=== PATIENT | male | born 1955 | race Caucasian/White ===

== ENCOUNTER 2023-02-20 08:13 | Outpatient (AMB) | payer OTHER, SELFPAY ==
--- NOTE | 2023-02-20 08:15 | A.OFFVIS_ITS ---
Intake Vital Signs 02/20/23 08:21 Height 5 ft 7 in Weight 230 lb 5 oz BMI 36.1 BP 146/82 H Blood Pressure Location Rt brachial Position Sitting Respiration 16 Pulse 56 Pulse Source Pulse Oximeter Pulse Oximetry (%) 97 Oxygen Delivery Method Room Air Intake Visit Reasons: [employer]: Memory Decline episodes of desorientation Intake Note: Pt presents to the office for new pt evaluation for memory loss. He is here with his son Peterson who is his hobbies and crafts sales representative. Pt reports he's been having issues with forgetting for a couple months. He begins to do something then forgets what he is doing midway. Allergies No Known Allergies Allergy (Verified 02/20/23 08:15) Medication List - Last Reconciled 02/20/23 by Vivi Goins MD amlodipine 5 mg PO DAILY aspirin 81 mg PO DAILY atorvastatin 20 mg PO DAILY cholecalciferol (vitamin D3) 10 mcg PO DAILY diclofenac sodium 1% (Arthritis Pain (diclofenac)) 2 grams topical QID docusate sodium (Colace) 100 mg PO DAILY lisinopril 20 mg PO DAILY mecobalamin (vitamin B12) mcg PO metoprolol succinate ER 50 mg PO DAILY omeprazole 20 mg PO DAILY oxybutynin chloride ER 10 mg PO DAILY sennosides (senna) 8.6 mg PO DAILY tamsulosin (Flomax) 0.4 mg PO DAILY HPI HPI Comments History of Present Illness Details 67y/o male with h/o CAD , HTN, hyperlipi demia,sleep disorder comes for evaluation of memory loss and episodes of transient disorientation. He is accompanies by his son who helps with history. He started noticing difficulty with short term memory about 3 years ago and has worsened. He frequently misplaces and searches things around the house, repeats himself, forgets conversations, forgets appointments, forgets to take medications , has trouble with phone numbers etc.He has trouble with names , directions etc. He also describes episodes of disorientation to place lasting few minutes. He has loud snoring, wakes up gasping for air , frequent arousals, cannot sleep supine, feels he cannot breath. he has depression and is not well controlled. 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 Mother No problems noted. Social History Household Members: Children Housing: House Alcohol intake: never Patient Tobacco Use Status: Never used Tobacco Review of Systems Const Reports daytime sleepiness, Reports difficulty sleeping, Reports fatigue, Reports malaise, Reports snoring and Reports weight gain Resp Reports snoring Musc Reports back pain and Reports arthralgias Neuro Reports memory loss Psych Reports depression and Reports memory loss Endo Reports fatigue Physical Exam Vital Signs: Last Vital Signs Pulse 56 02/20/23 08:21 Resp 16 02/20/23 08:21 BP 146/82 H 02/20/23 08:21 Pulse Ox 97 02/20/23 08:21 Oxygen Delivery Method Room Air 02/20/23 08:21 BMI result Body Mass Index 36.1 Const General: cooperative and comfortable Nutritional Appearance: obese Orientation/consciousness: patient oriented x3 Neck Neck: Yes no meningeal signs Neuro Other: mallampatti grade 4 General: patient oriented x3, tone normal, moves all extremities, no meningeal signs and no focal motor deficits Cranial nerves: Yes Facial sensation intact/muscles of mastication intact, Yes Bilaterally intact EOM present, Yes Nystagmus not present, Yes Normal facial strength present and Yes Midline tongue present Cognition (Neuro): normal cognition Gait exam (Neuro): Normal gait present Motor exam (neuro): 5/5 motor strength present throughout and Normal motor muscle tone present throughout Deep tendon reflexes (DTR's): Right triceps reflex intensity grade: 1+, Left triceps reflex intensity grade: 1+, Rt Biceps (C5, C6): 1+, Left biceps reflex intensity grade: 1+, Right brachioradialis reflex intensity grade: 1+, Left brachioradialis reflex intensity grade: 1+, Right patellar reflex intensity grade: 1+ and Left patellar reflex intensity grade: 1+ Coordination: [id number] test normal Orientation What is the (year) (season) (date) (day) (month)?: year, season, day and month Where are we (state) (county) (town or city) (hospital) (floor)?: state, county, town or city, hospital/clinic and floor Registration Name of 3 unrelated objects clearly and slowly, then ask patient to repeat all 3 of them. (1st repeat determines score. Make sure they can repeat all three): object 1, object 2 and object 3 Attention & Calculation (CHOOSE ONE) Ask pt to begin with 100 & count backward by 7. Stop after 5 repeats. If pt cannot ask them to spell the word WORLD backward.: 93 Recall Ask patient to repeat the 3 items from question #3.: object 1 Language Show patient a wristwatch & ask what it is. Repeat for pencil.: watch and pencil Ask the patient to repeat the phrase 'No ifs, ands, or buts' after you.: correct Ask the patient to 'take a piece of paper with their right hand' 'fold paper in half' 'place paper on floor': take paper in right hand, fold paper in half and place paper on floor Print the sentence 'CLOSE YOUR EYES' on a piece. If patient actually closes eyes then score.: followed written direction Give patient a blank piece of paper & ask to write a sentence. Score if it contains a noun & verb.: sentence contains subject and verb Ask patient to copy figure of intersecting pentagons exactly. Score if all 10 angles & 2 intersects are included.: all 10 angles present & 2 are intersected Score Score: 23 Assessment & Plan Assessment & Plan (1) Cognitive disorder: Comment: likely related to untreated sleep apnea, and vascular risk factors. Code(s): F09 - Unspecified mental disorder due to known physiological condition (2) Snoring: Code(s): R06.83 - Snoring (3) Hypersomnia: Code(s): G47.10 - Hypersomnia, unspecified Plan CT brain and labs form PCP I will schedule him for a home sleep test. He declines in lab sleep study. Orders: Orders RT home sleep study Today F09 - Unspecified mental disorder due to known physiological condition, G47.10 - Hypersomnia, unspecified, R06.83 - Snoring Coding Level of Care Code New Pt Level 4 (91868) Diagnoses Cognitive disorder F09 Snoring R06.83 Hypersomnia G47.10
[2023-02-20 08:21] VITALS: BP 146/82; PULSE 56; RESP 16; O2SAT 97; BMI 36.1
== END 2023-02-20 08:56 | disposition home or self-care (01) ==
PROVIDERS: PCP Physician Assistant; Visit Provider Psychiatry & Neurology Neurology
DX: G31.84 Mild cognitive impairment of uncertain or unknown etiology (principal); R06.83 Snoring; G47.10 Hypersomnia, unspecified
CPT/HCPCS: 99204

== ENCOUNTER → 2023-02-20 08:13 | Outpatient (BNVA) | payer OTHER, SELFPAY | PROVIDERS: PCP Physician Assistant; Visit Provider Psychiatry & Neurology Neurology ==

== ENCOUNTER 2023-05-23 13:41 | Outpatient (AMB) | payer OTHER, SELFPAY ==
--- NOTE | 2023-05-23 13:52 | MHC.OFFVIS ---
Intake Vital Signs 05/23/23 14:00 Height 5 ft 7 in Weight 239 lb 8 oz BMI 37.5 BP 124/70 Blood Pressure Location Lt brachial Position Sitting Pulse 84 Pulse Source Pulse Oximeter Pulse Oximetry (%) 98 Oxygen Delivery Method Room Air Intake Visit Reasons: 3 mo f/u-Memory decline - CONF Intake Note: Patient presents for 3 months f/u. Allergies No Known Allergies Allergy (Verified 05/23/23 13:56) HPI HPI Comments History of Present Illness Details 67 y/o male with mhx of CAD, HTN, hyperlipidemia, sleep disorder comes for follow up. He is accompanies by his son who helps with history. Pt states that his memory is about the same with short term memory loss, worsened. He frequently misplaces and searches things around the house, repeats himself, forgets conversations, forgets appointments, forgets to take medications, has trouble with phone numbers etc. He also describes episodes of disorientation to place lasting few minutes. He has loud snoring, wakes up gasping for air, frequent arousals, cannot sleep supine, feels he cannot breath. Pt did not want to have in lab sleep study, and home sleep study ordered. The home sleep study order is pending for ALECIA. 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 Mother No problems noted. Social History Household Members: Children Housing: House Alcohol intake: never Patient Tobacco Use Status: Never used Tobacco Physical Exam Vital Signs: Last Vital Signs Pulse 84 05/23/23 14:00 BP 124/70 05/23/23 14:00 Pulse Ox 98 05/23/23 14:00 Oxygen Delivery Method Room Air 05/23/23 14:00 BMI result Body Mass Index 37.5 Const General: cooperative and comfortable Nutritional Appearance: obese Orientation/consciousness: patient oriented x3 Neck Neck: Yes no meningeal signs Neuro Other: mallampatti grade 4 General: patient oriented x3, tone normal, moves all extremities, no meningeal signs and no focal motor deficits Cranial nerves: Yes Facial sensation intact/muscles of mastication intact, Yes Bilaterally intact EOM present, Yes Nystagmus not present, Yes Normal facial strength present and Yes Midline tongue present Cognition (Neuro): normal cognition Gait exam (Neuro): Normal gait present Motor exam (neuro): 5/5 motor strength present throughout and Normal motor muscle tone present throughout Deep tendon reflexes (DTR's): Right triceps reflex intensity grade: 1+, Left triceps reflex intensity grade: 1+, Rt Biceps (C5, C6): 1+, Left biceps reflex intensity grade: 1+, Right brachioradialis reflex intensity grade: 1+, Left brachioradialis reflex intensity grade: 1+, Right patellar reflex intensity grade: 1+ and Left patellar reflex intensity grade: 1+ Coordination: [id number] test normal Assessment & Plan Assessment & Plan (1) Cognitive disorder: Comment: likely related to untreated sleep apnea, and vascular risk factors. Code(s): F09 - Unspecified mental disorder due to known physiological condition (2) Snoring: Code(s): R06.83 - Snoring (3) Hypersomnia: Code(s): G47.10 - Hypersomnia, unspecified Plan [facility]. Advised patient to undergo home sleep test to assess sleep apnea. Will f/u of sleep study result for appropriate treatment options. Wt reduction advised. Encouraged patient to increase physical, cognitive and social activities. Coding Level of Care Code Est Pt Level 3 (75431) Diagnoses Cognitive disorder F09 Snoring R06.83 Hypersomnia G47.10
[2023-05-23 14:00] VITALS: BP 124/70; PULSE 84; O2SAT 98; BMI 37.5
== END 2023-05-23 14:18 | disposition home or self-care (01) ==
PROVIDERS: PCP Internal Medicine; Visit Provider Nurse Practitioner Family
DX: R41.89 Other symptoms and signs involving cognitive functions and awareness (principal); R06.83 Snoring; G47.10 Hypersomnia, unspecified
CPT/HCPCS: 99213

== ENCOUNTER → 2023-05-23 13:41 | Outpatient (BNVA) | payer OTHER, SELFPAY | PROVIDERS: PCP Internal Medicine; Visit Provider Nurse Practitioner Family ==

== ENCOUNTER 2023-09-27 08:37 | Outpatient (AMB) | payer OTHER, SELFPAY ==
--- NOTE | 2023-09-27 08:51 | A.OFFVIS_ITS ---
Vital Signs 09/27/23 08:52 Height 5 ft 7 in Weight 229 lb BMI 35.9 BP 132/80 Blood Pressure Location Rt brachial Position Sitting Respiration 16 Pulse 62 Pulse Source Pulse Oximeter Pulse Oximetry (%) 98 Oxygen Delivery Method Room Air Intake Visit Reasons: 4m follow up Memory decline - Confirmed Intake Note: Pt presents for 4 month follow up for Cognitive disorder. [employer] Machine Tender Required: No Allergies No Known Allergies Allergy (Verified 09/27/23 08:51) HPI Comments Details: 68 y/o male with mhx of CAD, HTN, hyperlipidemia, sleep disorder comes for follow up. He is accompanies by his son who helps with history. I do not have his sleep study report done By [facility]. Pt states that his memory is about the same with short term memory loss, worsened. He frequently misplaces and searches things around the house, repeats himself, forgets conversations, forgets appointments, forgets to take medications, has trouble with phone numbers etc. He also describes episodes of disorientation to place lasting few minutes. He has loud snoring, wakes up gasping for air, frequent arousals, cannot sleep supine, feels he cannot breath. 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 Mother No problems noted. Social History Household Members: Children Housing: House Alcohol intake: never Patient Tobacco Use Status: Never used Tobacco Physical Exam Vital Signs: Last Vital Signs Pulse 62 09/27/23 08:52 Resp 16 09/27/23 08:52 BP 132/80 09/27/23 08:52 Pulse Ox 98 09/27/23 08:52 Oxygen Delivery Method Room Air 09/27/23 08:52 BMI result Body Mass Index 35.9 Const General: cooperative and comfortable Nutritional Appearance: obese Orientation/consciousness: patient oriented x3 Neck Neck: Yes no meningeal signs Neuro Other: mallampatti grade 4 General: patient oriented x3, tone normal, moves all extremities, no meningeal signs and no focal motor deficits Cranial nerves: Yes Facial sensation intact/muscles of mastication intact, Yes Bilaterally intact EOM present, Yes Nystagmus not present, Yes Normal facial strength present and Yes Midline tongue present Cognition (Neuro): normal cognition Gait exam (Neuro): Normal gait present Motor exam (neuro): 5/5 motor strength present throughout and Normal motor muscle tone present throughout Coordination: [id number] test normal Assessment & Plan Assessment & Plan (1) Cognitive disorder: Comment: likely related to untreated sleep apnea, and vascular risk factors. Code(s): F09 - Unspecified mental disorder due to known physiological condition Category: Medical (2) Snoring: Code(s): R06.83 - Snoring Category: Medical (3) Hypersomnia: Code(s): G47.10 - Hypersomnia, unspecified Category: Medical Plan Will contact [facility] for sleep study results Wt reduction advised. Encouraged patient to increase physical, cognitive and social activities. Coding Level of Care Code Est Pt Level 4 (72508) Diagnoses Cognitive disorder F09 Snoring R06.83 Hypersomnia G47.10
[2023-09-27 08:52] VITALS: BP 132/80; PULSE 62; RESP 16; O2SAT 98; BMI 35.9
== END 2023-09-27 09:16 | disposition home or self-care (01) ==
PROVIDERS: PCP Internal Medicine; Visit Provider Psychiatry & Neurology Neurology
DX: R41.89 Other symptoms and signs involving cognitive functions and awareness (principal); R06.83 Snoring; G47.10 Hypersomnia, unspecified
CPT/HCPCS: 99214

== ENCOUNTER → 2023-09-27 08:37 | Outpatient (BNVA) | payer OTHER, SELFPAY | PROVIDERS: PCP Internal Medicine; Visit Provider Psychiatry & Neurology Neurology ==

== ENCOUNTER 2024-04-28 09:04 | Outpatient (AMB) | payer OTHER, SELFPAY ==
--- NOTE | 2024-04-28 09:11 | MHC.OFFVIS ---
Vital Signs 04/28/24 09:12 Height 5 ft 7 in Weight 234 lb BMI 36.6 BP 142/88 H Blood Pressure Location Rt brachial Position Sitting Pulse 66 Pulse Source Pulse Oximeter Pulse Oximetry (%) 96 Oxygen Delivery Method Room Air Intake Visit Reasons: 6 month f/u Intake Note: Patient presents for 6 month follow up Allergies No Known Allergies Allergy (Verified 04/28/24 09:20) Medication List - Last Reconciled 04/28/24 by Kim Claros PA-C amlodipine 5 mg PO DAILY aspirin 81 mg PO DAILY atorvastatin 20 mg PO DAILY cholecalciferol (vitamin D3) 10 mcg PO DAILY diclofenac sodium 1% (Arthritis Pain (diclofenac)) 2 grams topical QID docusate sodium (Colace) 100 mg PO DAILY lisinopril 20 mg PO DAILY mecobalamin (vitamin B12) mcg PO metoprolol succinate ER 50 mg PO DAILY omeprazole 20 mg PO DAILY oxybutynin chloride ER 10 mg PO DAILY sennosides (senna) 8.6 mg PO DAILY tamsulosin (Flomax) 0.4 mg PO DAILY HPI Comments Details: 68 y/o male with mhx of CAD, HTN, hyperlipidemia, sleep disorder comes for follow up. He is accompanies by his son who helps with history. I do not have his sleep study report done By [facility]. Pt states that his memory is about the same with short term memory loss, worsened. He frequently misplaces and searches things around the house, repeats himself, forgets conversations, forgets appointments, forgets to take medications, has trouble with phone numbers etc. He also describes episodes of disorientation to place lasting few minutes. He has loud snoring, wakes up gasping for air, frequent arousals, cannot sleep supine, feels he cannot breath. He has b/l Knee pain and R. hip pain. He lives at home and is independent in all ADLs. He doesn't drive anymore. RLS: He says L>R has numbness, tingling, spasms, and massages them and they feel better. He is always moving his legs at night. MMSE 22 Mood and Diet are okay. 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 Mother No problems noted. Social History Household Members: Children Housing: House Alcohol intake: never Patient Tobacco Use Status: Never used Tobacco Review of Systems Const All systems reviewed & are unremarkable except as noted in HPI and below Physical Exam Vital Signs: Last Vital Signs Pulse 66 04/28/24 09:12 BP 142/88 H 04/28/24 09:12 Pulse Ox 96 04/28/24 09:12 Oxygen Delivery Method Room Air 04/28/24 09:12 BMI result Body Mass Index 36.6 Const General: cooperative and comfortable Nutritional Appearance: obese Orientation/consciousness: patient oriented x3 Neck Neck: Yes no meningeal signs Neuro Other: mallampatti grade 4 General: patient oriented x3, tone normal, moves all extremities, no meningeal signs and no focal motor deficits Cranial nerves: Yes Facial sensation intact/muscles of mastication intact, Yes Bilaterally intact EOM present, Yes Nystagmus not present, Yes Normal facial strength present and Yes Midline tongue present Cognition (Neuro): normal cognition Gait exam (Neuro): Normal gait present Motor exam (neuro): 5/5 motor strength present throughout and Normal motor muscle tone present throughout Coordination: [id number] test normal Orientation What is the (year) (season) (date) (day) (month)?: year, season, day and month Where are we (state) (county) (town or city) (hospital) (floor)?: state, town or city, hospital/clinic and floor Registration Name of 3 unrelated objects clearly and slowly, then ask patient to repeat all 3 of them. (1st repeat determines score. Make sure they can repeat all three): object 1, object 2 and object 3 Attention & Calculation (CHOOSE ONE) Ask pt to begin with 100 & count backward by 7. Stop after 5 repeats. If pt cannot ask them to spell the word WORLD backward.: 93 and 86 Recall Ask patient to repeat the 3 items from question #3.: object 1, object 2 and object 3 Language Show patient a wristwatch & ask what it is. Repeat for pencil.: watch and pencil Ask the patient to repeat the phrase 'No ifs, ands, or buts' after you.: incorrect Ask the patient to 'take a piece of paper with their right hand' 'fold paper in half' 'place paper on floor': fold paper in half and place paper on floor Print the sentence 'CLOSE YOUR EYES' on a piece. If patient actually closes eyes then score.: followed written direction Give patient a blank piece of paper & ask to write a sentence. Score if it contains a noun & verb.: sentence contains subject and verb Score Score: 22 Results Reviewed Results Reviewed: Needs [employer] - to send us the Sleep Study [facility] - Records and Labs Assessment & Plan Assessment & Plan (1) Cognitive disorder: Comment: likely related to untreated sleep apnea, and vascular risk factors. Code(s): F09 - Unspecified mental disorder due to known physiological condition Category: Medical (2) Snoring: Code(s): R06.83 - Snoring Category: Medical (3) Hypersomnia: Code(s): G47.10 - Hypersomnia, unspecified Category: Medical (4) Neuropathy: Code(s): G62.9 - Polyneuropathy, unspecified Category: Medical (5) Pain in left lower leg: Code(s): M79.662 - Pain in left lower leg Category: Medical (6) RLS (restless legs syndrome): Code(s): G25.81 - Restless legs syndrome Category: Medical Plan Will contact [facility] for sleep study results. BMI is elevated : Wt reduction advised. RLS: Lidocaine, Meloxicam for Cramps, he has Voltran. Cognitive Decline: will f/u after sleep study, MMSE 22 today. Patient Education: Encouraged patient to increase physical, cognitive and social activities. Labs CBC/ CMP/ B12. Vit D / MMA / Homocysteine TSH Will f/u in 3 months Orders: Orders Vitamin B12 and Folate 04/28/24 G62.9 - Polyneuropathy, unspecified, F09 - Unspecified mental disorder due to known physiological condition Vitamin D 25-OH Total 04/28/24 F09 - Unspecified mental disorder due to known physiological condition, G62.9 - Polyneuropathy, unspecified TSH reflex Free T4 04/28/24 F09 - Unspecified mental disorder due to known physiological condition Methylmalonic Acid 04/28/24 G62.9 - Polyneuropathy, unspecified, F09 - Unspecified mental disorder due to known physiological condition Homocysteine 04/28/24 G62.9 - Polyneuropathy, unspecified, F09 - Unspecified mental disorder due to known physiological condition Complete Blood Count no Diff 04/28/24 G62.9 - Polyneuropathy, unspecified, F09 - Unspecified mental disorder due to known physiological condition Comprehensive Met. Panel 04/28/24 G62.9 - Polyneuropathy, unspecified, F09 - Unspecified mental disorder due to known physiological condition Medications: New cholecalciferol (vitamin D3) 1,250 mcg PO QWEEK 30 caps 0RF lidocaine 5% leave on most painful area for up to 12 hrs 3 patches topical DAILY 30 ea 0RF magnesium oxide 400 mg PO DAILY 30 tabs 1RF restless legs MDD 400mg G62.9 - Polyneuropathy, unspecified, F09 - Unspecified mental disorder due to known physiological condition riboflavin (vitamin B2) 400 mg PO DAILY 30 tabs 3RF insomnia MDD 400mg G47.9 - Sleep disorder, unspecified, F03.90 - Unspecified dementia, unspecified severity, without behavioral disturbance, psychotic disturbance, mood disturbance, and anxiety meloxicam 15 mg PO DAILY 30 tabs 0RF 30 days M79.662 - Pain in left lower leg Coding Level of Care Code Est Pt Level 4 (34584) Diagnoses Cognitive disorder F09 Snoring R06.83 Hypersomnia G47.10 Neuropathy G62.9 Pain in left lower leg M79.662 RLS (restless legs syndrome) G25.81
[2024-04-28 09:12] VITALS: BP 142/88; PULSE 66; O2SAT 96; BMI 36.6
== END 2024-04-28 10:19 | disposition home or self-care (01) ==
PROVIDERS: PCP Internal Medicine; Visit Provider Physician Assistant Medical
DX: R41.89 Other symptoms and signs involving cognitive functions and awareness (principal); R06.83 Snoring; G47.10 Hypersomnia, unspecified; G62.9 Polyneuropathy, unspecified; M79.662 Pain in left lower leg; G25.81 Restless legs syndrome
CPT/HCPCS: 99214

== ENCOUNTER 2024-07-31 08:55 | Outpatient (AMB) | payer OTHER, SELFPAY ==
[2024-07-31 09:10] VITALS: BP 124/70; PULSE 67; O2SAT 97; BMI 35.2
--- NOTE | 2024-07-31 09:10 | A.OFFVIS_ITS ---
Vital Signs 07/31/24 09:10 Height 5 ft 7 in Weight 225 lb BMI 35.2 BP 124/70 Blood Pressure Location Lt brachial Position Sitting Pulse 67 Pulse Source Pulse Oximeter Pulse Oximetry (%) 97 Oxygen Delivery Method Room Air Intake Visit Reasons: 3m follow up Intake Note: Patient presents follow up Cognitive/Sleep medication. Accompanied by: Son Allergies No Known Allergies Allergy (Verified 07/31/24 09:15) HPI Comments Details: 69 y/o male with hx of CAD, HTN, hyperlipidemia, sleep disorder comes for follow up for sleep and cognitive difficulties. He speaks Maori and understands some Thai, he is accompanied by his son who helps with history. He did not have his sleep study conducted as he was confused by jackie LLOYD. Pt states that his memory is about the same with short term memory loss, he needs multiple reminders and cuing. His manages his medication now, as he forgets to take his blood pressure medication.He frequently misplaces articles and searches around the house. He repeats himself, forgets conversations, forgets appointments, has trouble with phone numbers etc. He also describes episodes of disorientation to places lasting few minutes. He snores loudly, wakes up gasping for air, frequent arousals, doesn't sleep through the night and cannot sleep supine, feels he cannot breath, will sleep on his left side vs. right due to pain and a creaky noise in his r. shoulder when he reaches for anything in the cupboard. He has osteoarthritis bilaterally in knees and r. hip pain he has been seen by [facility] in the past and asks today for some gel like substance injections. He lives at home and is independent in all ADLs, he cooks delicous meals per his son, and does not drive anymore. He walks for about 30 min 3 x a week, is motivated to lose weight, does not drink alcohol, prefers juice and water. MMSE at last visit was 22, will evaluate with MRI in next appt if not improved with CPAP use. RLS: He denies RLS symptoms. Denies numbness, tingling, spasms, cramps. Headaches: He denies morning headaches and does not grind his teeth, he needs dentures and has not been to the dentist. His mood is okay, he feels better in the summer months, less depressed and goes out more. 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 Mother No problems noted. Social History Household Members: Children Housing: House Alcohol intake: never Patient Tobacco Use Status: Never used Tobacco Physical Exam Vital Signs: Last Vital Signs Pulse 67 07/31/24 09:10 BP 124/70 07/31/24 09:10 Pulse Ox 97 07/31/24 09:10 Oxygen Delivery Method Room Air 07/31/24 09:10 BMI result Body Mass Index 35.2 Const General: cooperative and comfortable Nutritional Appearance: obese Orientation/consciousness: patient oriented x3 Neck Neck: Yes no meningeal signs Neuro Other: mallampatti grade 4 General: patient oriented x3, tone normal, moves all extremities, no meningeal signs and no focal motor deficits Cranial nerves: Yes Facial sensation intact/muscles of mastication intact, Yes Bilaterally intact EOM present, Yes Nystagmus not present, Yes Normal facial strength present and Yes Midline tongue present Cognition (Neuro): normal cognition Gait exam (Neuro): Normal gait present Motor exam (neuro): 5/5 motor strength present throughout and Normal motor muscle tone present throughout Coordination: xclobr-mx-gygh test normal Results Reviewed Results Reviewed: MRI 05/16/2023 abdomen [facility] Normal Study CT scan Apr 2017, normal study Assessment & Plan Assessment & Plan (1) Shoulder pain, right: Code(s): M25.511 - Pain in right shoulder Category: Medical Qualifiers: Chronicity: chronic Qualified Code(s): M25.511 - Pain in right shoulder; G89.29 - Other chronic pain (2) Cognitive disorder: Comment: likely related to untreated sleep apnea, and vascular risk factors. Code(s): F09 - Unspecified mental disorder due to known physiological condition Category: Medical (3) Snoring: Code(s): R06.83 - Snoring Category: Medical (4) Hypersomnia: Code(s): G47.10 - Hypersomnia, unspecified Category: Medical (5) Neuropathy: Code(s): G62.9 - Polyneuropathy, unspecified Category: Medical (6) Pain in left lower leg: Code(s): M79.662 - Pain in left lower leg Category: Medical (7) RLS (restless legs syndrome): Code(s): G25.81 - Restless legs syndrome Category: Medical (8) Fatigue due to sleep pattern disturbance: Code(s): R53.83 - Other fatigue; G47.9 - Sleep disorder, unspecified Category: Medical Plan HST to evalutate for Sleep difficulties. BMI is elevated discussed heart healthy diet today. R. Shoulder pain discussed [facility] for PT and Cortisone injections. Bilateral Knee pain osteoarthritis, may use Meloxicam, turmeric 500mg with black pepper for absorption daily to decrease inflammation. Cognitive Decline will send him for MRI at next visit if not improved. Patient Education provided re: sleep hygiene and the correlation of comorbi dities on heart health and brain health. Labs CBC/ CMP/ B12. Vit D / MMA / Homocysteine TSH f/u in 3 months Orders: Orders PT Evaluation and Treatment Today M25.511 - Pain in right shoulder RT home sleep study Today G47.19 - Other hypersomnia Patient Instructions: Sleep Hygiene provided: set a scheduled bedtime and wake time to help regulate the circadian rhythm and balance the release of pituitary hormones. Sleep in a dark room, temperatures below 68 degrees, and no devices n bed. Limit caffeinated products 6 hours prior to bed, and limit fluids 2-4 hours prior to bed. Gentle night yoga, diffusing essential oils, and playing soft music can be relaxing. The number one modifiable risk factor of CV risk is good blood pressure management, patient has a history of pulmonary aneurysm and cognitive decline, patient education provided today, re: reducing weight, walking, joining the [employer] and taking all medications on time, also having his manage medications if he is confused or forgets. Alleviating stressors, gettting a good nights sleep and exercise. Coding Level of Care Code Est Pt Level 4 (27147) Diagnoses Chronic right shoulder pain M25.511; G89.29 Chronicity: chronic Cognitive disorder F09 Snoring R06.83 Hypersomnia G47.10 Neuropathy G62.9 Pain in left lower leg M79.662 RLS (restless legs syndrome) G25.81 Fatigue due to sleep pattern disturbance R53.83; G47.9 Time Spent (min) 30
--- OUTSIDE RECORDS SUMMARY | 2024-07-31 09:31 | XMS_ITS | Clinical Summary ---
Author Organization [facility] Address [address] [place] [address] Care Team Providers Care Baby Registry Sales Consultant Name Role Phone Destinee Branham PA-C Primary Care Provider [phone] Source Comments PLEASE NOTE, if this patient is a minor, it may be UNLAWFUL to discuss sensitive information that is contained in these records (such as FAMILY PLANNING, MENTAL HEALTH or SUBSTANCE ABUSE) with the minor patient's parent or other person without the patient's specific authorization.[facility] Allergies No known active allergies Medications omeprazole (PRILOSEC) [address] capsuleIndications :Gastroesophageal reflux disease, esophagitis presence not specified Take 1 Cap by mouth every morning before breakfast Do not crush or chew. 06/02/19 17 Active tamsulosin (FLOMAX) 0.4 mg 24 hr capsule TAKE ONE CAPSULE BY MOUTH ONCE DAILY 30 MIN FOLLOWING SAME MEAL,SWALLOW WHOLE,DON'T CRUSH/CHEW 30 Cap 5 07/21/19 17 Active calamine lotionIndications: Poison sally dermatitis Apply topically 2 (two) times daily 120 mL 10/13/19 18 Active blood pressure monitorIndications :Essential hypertension Check BP at least daily. I10 Essential hypertension (primary encounter diagnosis) 1 Kit 10/30/19 19 Active camphor-menthol (SARNA ANTI-ITCH) 0.5-0.5 % lotnIndications:It myles Apply 5 mL topically 1 to 2 (one to two) times daily 222 mL 10/30/19 19 Active diclofenac sodium (VOLTAREN) 1 % gelIndications:Chr onic pain of both knees,Acute right-sided thoracic back pain APPLY 4 GRAMS TO left knee 3 TIMES PER DAY 100 g 1 10/30/19 19 Active cetirizine (ZYRTEC) 10 mg tabletIndications: Seasonal allergies Take 1 Tab by mouth once daily 30 Tab 2 04/01/20 19 Active lisinopriL 40 mg tablet Take 1 Tablet by mouth once daily 90 Tablet 3 03/09/20 [address] tabletIndications: Hyperlipidemia, unspecified hyperlipidemia type,Essential hypertension Take 1 Tablet by mouth once daily 90 Tablet 3 03/09/20 21 Active atorvastatin (LIPITOR) 80 mg tabletIndications: Essential hypertension Take 1 Tablet by mouth once daily 90 Tablet 3 03/09/20 21 Active VITAMIN D3 25 mcg (1,000 unit) tabletIndications: Vitamin D insufficiency TAKE 1 TABLET BY MOUTH EVERY DAY 90 Tablet 06/14/19 22 Active Active Problems Problem Noted Date Diagnosed Date Right knee pain 04/26/2018 Overview (04/26/2018): Sees [facility] - 03-21-18 - moderate medial femorotibial compartment joint space narrowing. Trial tylenol. Injection done. Cerebrovascular accident (CVA) ([facility]) 018 Overview (09/18/2017): Saw [facility] on 09-11-17. CT of head ordered and CTA head and neck. Will f/u after imaging. Rotator cuff tear of right shoulder 07/28/2016 GERD (gastroesophageal reflux disease) 7 Adenoma of left adrenal gland 12/22/2015 Overview (12/22/2015): Via CT 12/09/15 at [facility], repeat 1 year BPH (benign prostatic hypertrophy) 12/22/2015 Overview (12/22/2015): CT abd/pelvis 12/09/15 [facility] Vitamin D insufficiency 2015 Chronic pain of left knee 07/30/2014 Overview (07/30/2014): S/p left knee arthroscopy 11/28/[address] Alcocer. HTN (hypertension) 09/06/2012 IFG/Pre-DM 12/15/2011 Hyperlipidemia LDL goal <100 07/26/2010 Bilateral shoulder pain 07/25/2010 Overview (12/13/2012): Rotator cuff tear Right shoulder per [facility]. Obesity Encounters Date Type Department Care Team Description 07/01/2024 3:00 PM EDT Office Visit [address] [phone] Guanaco Diaz DDS Fracture of removable partial denture (Primary Dx) 06/30/2024 9:40 AM EDT Office Visit [address] [phone] Guanaco Diaz DDS Fracture of removable partial denture (Primary Dx) 05/30/2024 2:20 PM EST Office Visit [address] [phone] Guanaco Diaz DDS Partial edentulism, unspecified edentulism class (Primary Dx) 05/21/2024 10:00 AM EST Office Visit [address] [phone] Guanaco Diaz DDS Partial edentulism, unspecified edentulism class (Primary Dx) 05/15/2024 2:20 PM EST Office Visit [address] [phone] Guanaco Diaz DDS Partial edentulism, unspecified edentulism class (Primary Dx) from Last 3 Months Immunizations Immunization Administration Dates Next Due Flu, Preservative Free 02/07/2018,01/09/2017, Hep A, adult 12/15/2011 Hep B, Adult/Adol (ENERGIX/RECOMBIVAX) 12/15/2011,03/27/2000,01/27/2000 INFLUENZA, SEASONAL, INJECTABLE 03/18/2014,12/13 MMR (MMR II/Priorix) 03/27/2000,12/23/1999 PPD 02/26/2016, 6,06/08/2015,2013,01/17/2007 TDAP 07/01/2018 Td(adult),2 Lf tetanus toxoid,preservative free 12/23/1999 Family History Medical History Relation Name Comments Cancer Father liver Diabetes Mother High Cholesterol Mother Relation Name Status Comments Father (Age 70) liver canc er Mother Alive Social History Tobacco Use Types Packs/Day Years Used Date Smoking Tobacco: Never Smokeless Tobacco: Never Tobacco Cessation:Counseling Given: Yes Alcohol Use Standard Drinks/Week Comments Yes 0 (1 standard drink = 0.6 oz pur e alcohol) rare Social Connections Answer Date Recorded Connectedness 0 12/26/2023 Financial Resource Strain Answer Date R ecorded Financial Resource Strain 0 2018 Stress Answer Date Recorded Stress 0 11/25/2018 Physical Activity Answer Date Recorded Physical Activity 0 11/25/2018 Food Insecurity Answer Date Recorded Food 0 01/03/2024 Transportation Needs Answer Date Record ed Transportation 0 11/25/2018 Housing Stability Answer Date Recorded Housing 0 11/25/2018 Safety and Environment Answer Date Gopi rded Safety 0 11/25/2018 Utilities Answer Date Recorded Utilities 0 11/25/2018 Employment Answer Date Recorded Stress 0 12/26/2023 Sex and Gender Information Value Date Recorded Sex Assigned at Male 07/26/2017 8:02 AM PDT Legal Sex Male 11:36 AM PDT Gender Identity Male 07/26/2017 8:02 AM PDT Sexual Orientation Straight 07/26/2017 8: 02 AM PDT Occupation Industry 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 [employer] Not on file Not on file Not on file Last Filed Vital Signs Vital Sign Reading Time Taken Comments Blood Pressure 168/89 04/14/2024 1:34 PM EST Pulse 71 04/14/2024 1:34 PM EST Temperature 36.6 ??C (97.8 ??F) 03/09/2021 10:[address] Respiratory Rate 16 03/09/2021 10:46 AM EST Oxygen Saturation 97% 03/09/2021 10:46 AM EST Inhaled Oxygen Concentration - - Weight 106 kg (233 lb 9.6 oz) 03/09/2021 10:46 A M EST Height 170.2 cm (5' 7 ) 03/09/2021 10:46 AM EST Body Mass Index 36.59 03/09/2021 10:46 AM EST Plan of Treatment Health Maintenance Due Date Last Done Comments Dental FMX/Pano 1956 Dental Perio Charting [address] Colonography 2001 FIT/gFOBT 2001 Fecal DNA 2001 Flexible Sigmoidoscopy 2001 Imm-Pneumococcal 65+ (1 of 1 - PCV) 2006 Imm-Zoster, Recombinant (1 of 2) 2006 Falls Prevention 2021 Lipid Screening 03/09/2022 03/09/2021, 06/08, 07/26/2017, Additional history exists Medicare Annual Wellness Visit 03/09/2022 1 05/10/2020, 07/01/2018, 07/28/2016, Additional history exists [id number] ( season) 2023 Imm-Influenza (#1) 2023 01/25/2019, 1 04/09/2017, 01/09/2017, Additional history exists Diabetes Screening 03/09/2024 03/09/2021, 1 05/10/2020, 07/01/2018, Additional history exists Alcohol and Drug Screen 04/09/2024 03/09/20, 07/01/2018, 05/02/2018, Additional history exists Depression Annual Screen 04/09/2024 03/09/2021 Dental Examination 04/16/2025 04/14/2024 Tobacco Screening 07/01/2025 07/01/2024, 07/01/2018 Colonoscopy 07/27/2026 07/27/2016 Colorectal Cancer Screening 07/27/2026 Imm-DTaP/Tdap/Td (3 - Td or Tdap) 08/01/2031 07/31/2021, 07/01/2018, 12/23/1999 Imm-Hepatitis B Completed 12/15/2011, 03/09, 01/27/2000 Hepatitis C Screening Completed 07/01/2018 Goals Goal Patient Goal Type Associated Problems Recent Progress Patient-Stated? Author Blood Pressure < 130/80 Blood Pressure HTN (hypertension) 168/89( 025 1:34 PM EST) Trav Chavez, PharmD Procedures Procedure Name Priority Date/Time Associated Diagnosis Comments NO CHARGE DENTAL VISIT Routine 3:00 PM EDT Fracture of removable partial denture REMOVABLE PARTIAL DENTURE - IN PROCESS Routine 06/30/2024 9:40 AM EDT Fracture of removable partial denture 30,31,17 MANDIBULAR PARTIAL DENTURE - RESIN BASE Routine 05/30/2024 2:20 PM EST Partial edentulism, unspecified edentulism class 2,3,4,5,6,7,12,13,14,1 5,8,9,10 MAXILLARY PARTIAL DENTURE - RESIN BASE Routine 05/30/2024 2:20 PM EST Partial edentulism, unspecified edentulism class REMOVABLE PARTIAL DENTURE - IN PROCESS Routine 05/21/2024 10:00 AM EST Partial edentulism, unspecified edentulism class UPPER PARTIAL DENTURE WAX RIM IN PROGRESS Routine 05/15/2024 2:20 PM EST Partial edentulism, unspecified edentulism class COMP ORAL EVALUATION - NEW/ESTABLISHED PATIENT Routine 04/14/2024 1:00 PM EST Encounter for dental examination COMPREHENSIVE METABOLIC PANEL Routine 03/09/2021 11:47 AM EST Annual physical exam LIPIDS W RFLX TO DIRECT LDL Routine 03/09/2021 11:47 AM EST Annual physical exam HEPATITIS A,B,C PANEL Routine 07/01/2018 9:40 AM EDT Encounter for hepatitis C screening test for low risk patient COLONOSCOPY Routine 07/27/2016 9:48 AM EDT from Last 3 Months or Most Recently Relevant to Health Maintenance Results * (ABNORMAL) LIPIDS W RFLX TO DIRECT LDL (03/09/2021 11:47 AM EST) [facility] Signature CHOLESTEROL, TOTAL 199 <200 mg/dL [facility] HDL CHOLESTEROL 50 > OR = 40 mg/dL [facility] TRIGLYCERIDES 97 <150 mg/dL [facility] LDL-CHOLESTEROL 129(H) 99 mg/dL (calc) [facility] Comment: Reference range: <100 Desirable range <100 mg/dL for primary prevention; ?? <70 mg/dL for patients with CHD or diabetic patients with > or = 2 CHD risk factors. LDL-C is now calculated using the Jeremy calculation, which is a validated novel method providing better accuracy than the Friedewald equation in the estimation of LDL-C. Kaleb PRICE et al. ALEJANDRO. 2013;310(19): 2600-6420 (http://education.[employer].Yarraa/faq/QLN146) CHOL/HDLC RATIO 4.0 <5.0 (calc) [facility] NON-HDL CHOLESTEROL 149(H) <130 mg/dL (calc) [facility] Comment: For patients with diabetes plus 1 major ASCVD risk factor, treating to a non-HDL-C goal of <100 mg/dL (LDL-C of <70 mg/dL) is considered a therapeutic option. Blood Blood / Unknown 03/09/2021 1 1:47 AM EST 03/09/2021 11:48 AM EST Destinee Branham PA-C LAB - BLOOD DRAW Final Resul t [facility] [address] [address], [facility] [address] [address] * COMPREHENSIVE METABOLIC PANEL (03/09/2021 11:47 AM EST) GLUCOSE 98 65 - 99 mg/dL [facility] Comment: ?Fasting reference interval UREA NITROGEN (BUN) 16 7 - 25 mg/dL [facility] CREATININE (blood) 0.83 0.70 - 1.25 mg/dL [facility] Comment: For patients >49 years of age, the reference limit for Creatinine is approximately 13% higher for people identified as -Lebanese. GFR ESTIMATED 93 > OR = 60 mL/min/1 .73m2 [facility] EGFR 108 > OR = 60 mL/min/1 .73m2 [facility] BUN/CREATININE RATIO NOT APPLICABLE 6 - 22 [facility] SODIUM 138 135 - 146 mmol/L [facility] POTASSIUM 4.2 3.5 - 5.3 mmol/L [facility] CHLORIDE 102 98 - 110 mmol/L [facility] CARBON DIOXIDE 27 20 - 32 mmol/L [facility] CALCIUM 9.3 8.6 - 10.3 mg/dL [facility] PROTEIN, TOTAL 7.0 6.1 - 8.1 g/dL [facility] ALBUMIN 4.4 3.6 - 5.1 g/dL [facility] GLOBULIN 2.6 1.9 - 3.7 g/dL (calc) [facility] ALBUMIN/GLOBULIN RATIO 1.7 1.0 - 2.5 (calc) [facility] BILIRUBIN, TOTAL 0.8 0.2 - 1.2 mg/dL [facility] ALKALINE PHOSPHATASE 58 35 - 144 U/L [facility] AST 17 10 - 35 U/L [facility] ALT 22 9 - 46 U/L [facility] Blood Blood / Unknown 03/09/2021 1 1:47 AM EST 03/09/2021 11:48 AM EST Destinee Branham PA-C LAB - BLOOD DRAW Final Resul t [facility] [address] [address], [facility] [address] [address] * (ABNORMAL) HEPATITIS A,B,C PANEL (07/01/2018 9:40 AM EDT) HEPATITIS B SURFACE ANTIBODY NEGATIVE NEGATIVE [facility] HEPATITIS B SURFACE ANTIGEN NEGATIVE NEGATIVE [facility] Comment: Over the counter supplements containing high doses of biotin may interfere with this assay. ??If interference is suspected, patients shoud be retested after refraining from biotin supplements for 72 hours. HEPATITIS C VIRUS DIAGNOSTIC NEGATIVE NEGATIVE [facility] HEPATITIS A ANTIBODY TOTAL POSITIVE(A) NEGATIVE [facility] Comment: Over the counter supplements containing high doses of biotin may interfere with this assay. ??If interference is suspected, patients shoud be retested after refraining from biotin supplements for 72 hours. HEPATITIS B CORE ANTIBODY NEGATIVE NEGATIVE [facility] Blood specimen (specimen) Blood / Unknown 07/01/2018 9:40 AM EDT 07/01/2018 10:45 AM EDT Narrative [facility] - 07/01/2018 12:54 PM EDT [employer], a member of [address] [address] [employer] Equipment [place] [id number] ORD# [id number] us [facility] - BLOOD DRAW Edited Result - Final [facility] [address] [place] [address], * COLONOSCOPY (07/27/2016 9:48 AM EDT) Ward Crook PA - 07/27/2016 9:48 AM EDT Done at [facility] per EMR us Provider [facility] PROCEDURES Edited Result - Final from Last 3 Months or Most Recently Relevant to Health Maintenance [place] [id number] Care Teams Baby Registry Sales Consultant Relationship Specialty Start Date End Date Destinee Branham PA-C [address] [place] [address] PCP - General Internal Medicine 12/31/20
--- OUTSIDE RECORDS SUMMARY | 2024-07-31 09:31 | XMS_ITS | Clinical Summary ---
Author Organization [facility] Address [address] [place] [address] Phone Care Team Providers Care Occupational Rehabilitation Aide Name Role Phone Mayra Sauer Lottie SCRAP SAWYER Primary Care Provider [phone] Allergies No known active allergies Medications polyethylene glycol (Golytely) 236-22.74-6.74 -5.86 gram solution Take 4L by mouth once for one dose. May substitue any PEG. Starting at 6PM the night before your procedure drink 1 8oz glasses at your own pace until you complete half of the gallon. Finish 2nd half of the gallon 5 hours before your procedure. 4000 mL 5 Active bisacodyL (DULCOLAX) 5 mg EC tablet Take 2 tablets by mouth right before beginning bowel prep. See instructions provided by the office 2 tablet 5 Active atorvastatin (LIPITOR) 20 mg tablet Take 1 tablet (20 mg total) by mouth 1 (one) time each day. Active lisinopriL (PRINIVIL,ZESTR IL) 20 mg tablet Take 1 tablet (20 mg total) by mouth 1 (one) time each day. Active Encounters Date Type Department Care Team Description 06/18/2024 1:40 PM EDT Anesthesia Event [facility] Endoscopy [address] [place] [address] Jim Erickson MD Chang, Daniel J, MD 06/18/2024 11:41 AM EDT - 06/18/2024 11:59 PM EDT Hospital Encounter [facility] Endoscopy [address] [place] [address] Vaishnavi Matthews MD Colon cancer screening Discharge Disposition: Home or Self Care from Last 3 Months Surgical History Surgery Date Site/Laterality Comments HERNIA REPAIR PROCEDURE: HISTORICAL HERNIA REPAIR/ING APPENDECTOMY PROCEDURE: [place] APPENDECTOMY COLONOSCOPY 07/27/2016 PROCEDURE: HISTORICAL COLONOSCOPY; COMMENT: [email or web address]; normal. UPPER GASTROINTESTINAL ENDOSCOPY 06/09/2019 PROCEDURE: [place] UPPER GI ENDOSCOPY PERFORMED; COMMENT: Normal KNEE ARTHROSCOPY Medical History Medical History Date Comments H/O small bowel obstruction DX:H /O small bowel obstruction Abdominal pain DX:Abdominal elvis n Esophageal reflux DX:Esophageal reflux Throat pain in adult DX:Throat p ain in adult Hyperlipidemia Hypertension Social History Tobacco Use Types Packs/Day Years Used Date Smoking Tobacco: Never Smokeless Tobacco: Never Alcohol Use Standard Drinks/Week Comments Yes 0 (1 standard drink = 0.6 oz pur e alcohol) Interpersonal Safety Answer Date Record ed Physical Abuse 06/18/2024 Verbal Abuse 06/18/2024 Sex and Gender Information Value Date Recorded Sex Assigned at Male 06/18/2024 11:17 AM EDT Legal Sex Male 1:14 AM EST Gender Identity Male 06/18/2024 11:17 AM EDT Sexual Orientation Straight 06/18/2024 11 :17 AM EDT Obstetrics History Last Filed Vital Signs Vital Sign Reading Time Taken Comments Blood Pressure 112/84 06/18/2024 2:17 PM EDT Pulse 76 06/18/2024 2:17 PM EDT Temperature 36.2 ??C (97.2 ??F) 06/18/2024 1:23 PM ED T Respiratory Rate 18 06/18/2024 2:17 PM EDT Oxygen Saturation 96% 06/18/2024 2:17 PM EDT Inhaled Oxygen Concentration - - Weight 104 kg (230 lb) 06/18/2024 1:23 PM EDT Height 170.2 cm (5' 7 ) 06/18/2024 1:23 PM EDT Body Mass Index 36.02 06/18/2024 1:23 PM EDT Plan of Treatment Health Maintenance Due Date Last Done Comments Pneumococcal Vaccine: 50+ Years (1 of 1 - PCV) 2006 Zoster Vaccines (1 of 2) 2006 Depression Screening 03/12/2022 Hepatitis C Screening 03/12/2022 Medicare Annual Wellness Visit 03/12/2022 Social Influencers of Health Screening 03/12/2022 COVID-19 Vaccine ( season) 2023 Hypertension/CHF/CAD Annual BMP Blood Test 06/18/2024 03/09/2021 Influenza Vaccine (Season Ended) 2024 02/07/2018, 01/09/2017, 01/07/2016, Additional history exists Falls Risk Assessment 06/18/2025 06/18/2024 Cholesterol Screening (Lipid Panel) 03/09/2026 03/09/2021, 07/01/2018, 07/26/2017 RSV Immunization Adult Patients (1 - 1-dose 75+ series) 07/11/2031 DTaP,Tdap,and Td Vaccines (4 - Td or Tdap) 08/01/2031 07/31/2021, 07/01/2018, 12/23/1999 Colorectal Cancer Screening: Colonoscopy 06/18/2034 06/18/2024 MMR Vaccines Aged Out 03/27/2000, 12/23/1999 No lo nger eligible based on patient's age to complete this topic Hepatitis A Vaccines Aged Out 12/15/2011 No long er eligible based on patient's age to complete this topic Hepatitis B Vaccines Completed 12/15/2011, 03/27/2000, 01/27/2000 HIB Vaccines Aged Out No longer eligi ble based on patient's age to complete this topic HPV Vaccines Aged Out No longer eligi ble based on patient's age to complete this topic IPV Vaccines Aged Out No longer eligi ble based on patient's age to complete this topic Meningococcal ACWY Vaccine Aged Out N o longer eligible based on patient's age to complete this topic Meningococcal B Vaccine Aged Out No l onger eligible based on patient's age to complete this topic RSV Immunization Patients Under 20 months Aged Out No longer eligible based on patient's age to complete this topic Varicella Vaccines Aged Out No longer eligible based on patient's age to complete this topic Procedures Procedure Name Priority Date/Time Associated Diagnosis Comments COLONOSCOPY Routine 06/18/2024 1:56 PM EDT Colon cancer screening TISSUE EXAM Routine 06/18/2024 1:48 PM EDT Colon cancer screening from Last 3 Months Results * COLONOSCOPY Anesthesia - MAC; [facility] ENDOSCOPY (06/18/2024 1:56 PM EDT) Anatomical Region Laterality Modality Endoscopy 06/18/2024 1:43 PM EDT Impressions 06/18/2024 1:58 PM EDT - One 4 mm polyp in the transverse colon, removed with ? a cold snare. Resected and retrieved. ? - Diverticulosis in the sigmoid colon. ? - Internal hemorrhoids. ? - The examination was otherwise normal. Recommendation: ?- Discharge patient to home. ? - Await pathology results. ? - No repeat colonoscopy due to current age (66 years ? or older). Narrative 06/18/2024 1:58 PM EDT [facility] GI Patient Name: Aguilar Dixon Procedure Date: 06/18/2024 1:43 PM Date of : 1955 Age: 68 Gender: Male Note Status: Finalized Attending MD: Vaishnavi Matthews MD, Procedure Date No Time: 06/18/2024 Procedure: ? Colonoscopy Indications: ? Screening for colorectal malignant neoplasm Providers: ? Vaishnavi Matthews MD Referring MD: ?Vaishnavi Matthews MD Medicines: ? Monitored Anesthesia Care Complications: ? No immediate complications. Estimated blood loss: ? Minimal. Estimated Blood Loss: ? Estimated blood loss was minimal. Procedure: ? Pre-Anesthesia Assessment: ? - Prior to the procedure, a History and Physical was ? performed, and patient medications and allergies were ? reviewed. The patient is competent. The risks and ? benefits of the procedure and the sedation options and ? risks were discussed with the patient. All questions ? were answered and informed consent was obtained. ? Patient identification and proposed procedure were ? verified by the physician, the nurse, the automatic lump making machine tender ? and the tool repair technician in the pre-procedure area in the ? endoscopy suite. Mental Status Examination: alert and ? oriented. Airway Examination: normal oropharyngeal ? airway and neck mobility. Respiratory Examination: ? clear to auscultation. CV Examination: normal. ? Prophylactic Antibiotics: The patient does not require ? prophylactic antibiotics. Prior Anticoagulants: The ? patient has taken no anticoagulant or antiplatelet ? agents. ASA Grade Assessment: III - A patient with ? severe systemic disease. After reviewing the risks and ? benefits, the patient was deemed in satisfactory ? condition to undergo the procedure. The anesthesia ? plan was to use monitored anesthesia care (MAC). ? Immediately prior to administration of medications, ? the patient was re-assessed for adequacy to receive ? sedatives. The heart rate, respiratory rate, oxygen ? saturations, blood pressure, adequacy of pulmonary ? ventilation, and response to care were monitored ? throughout the procedure. The physical status of the ? patient was re-assessed after the procedure. ? After I obtained informed consent, the scope was ? passed under direct vision. Throughout the procedure, ? the patient's blood pressure, pulse, and oxygen ? saturations were monitored continuously. The ? Colonoscope was introduced through the anus and ? advanced to the cecum, identified by appendiceal ? orifice and ileocecal valve. The colonoscopy was ? performed without difficulty. The patient tolerated ? the procedure well. The quality of the bowel ? preparation was good. Findings: ?The perianal and digital rectal examinations were ? normal. ? A 4 mm polyp was found in the transverse colon. The ? polyp was sessile. The polyp was removed with a cold ? snare. Resection and retrieval were complete. ? Estimated blood loss was minimal. ? Scattered small-mouthed diverticula were found in the ? sigmoid colon. ? Internal hemorrhoids were found during retroflexion. ? The hemorrhoids were Grade II (internal hemorrhoids ? that prolapse but reduce spontaneously). ? The exam was otherwise without abnormality. Procedure Code(s): ? --- Professional --- ? 80692, Colonoscopy, flexible; with removal of ? tumor(s), polyp(s), or other lesion(s) by snare ? technique Diagnosis Code(s): ? --- Professional --- ? D12.3, Benign neoplasm of transverse colon (hepatic ? flexure or splenic flexure) CPT copyright 2020 [employer]. All rights reserved. The codes documented in this report are preliminary and upon icd 9 coder review may be revised to meet current compliance requirements. Vaishnavi Matthews MD 06/18/2024 1:58:13 PM This report has been signed electronically.Vaishnavi Matthews MD Number of Addenda: 0 Note Initiated On: 06/18/2024 1:43 PM Scope In: 1:45:58 PM Scope Out: 1:56:39 PM ? Endoscopy Department at [facility] - [address] [place] [address], ? [place] [address] Procedure Note Vaishnavi Matthews MD - 06/18/2024 [facility] GI Patient Name: Aguilar Dixon Procedure Date: 06/18/2024 1:43 PM Date of : 1955 Age: 68 Gender: Male Note Status: Finalized Attending MD: Vaishnavi Matthews MD, Procedure Date No Time: 06/18/2024 Procedure: Colonoscopy Indications: Screening for colorectal malignant neoplasm Providers: Vaishnavi Matthews MD Referring MD: Vaishnavi Matthews MD Medicines: Monitored Anesthesia Care Complications: No immediate complications. Estimated blood loss: Minimal. Estimated Blood Loss: Estimated blood loss was minimal. Procedure: Pre-Anesthesia Assessment: - Prior to the procedure, a History and Physicalwas performed, and patient medications and allergieswere reviewed. The patient is competent. The risks and benefits of the procedure and the sedation optionsand risks were discussed with the patient. Allquestions were answered and informed consent was obtained. Patient identification and proposed procedure were verified by the physician, the nurse, theanesthetist and the tool repair technician in the pre-procedure area in the endoscopy suite. Mental Status Examination: alertand oriented. Airway Examination: normal oropharyngeal airway and neck mobility. Respiratory Examination: clear to auscultation. CV Examination: normal. Prophylactic Antibiotics: The patient does notrequire prophylactic antibiotics. Prior Anticoagulants: The patient has taken no anticoagulant or antiplatelet agents. ASA Grade Assessment: III - A patient with severe systemic disease. After reviewing the risksand benefits, the patient was deemed in satisfactory condition to undergo the procedure. The anesthesia plan was to use monitored anesthesia care (MAC). Immediately prior to administration of medications, the patient was re-assessed for adequacy to receive sedatives. The heart rate, respiratory rate, oxygen saturations, blood pressure, adequacy of pulmonary ventilation, and response to care were monitored throughout the procedure. The physical status ofthe patient was re-assessed after the procedure. After I obtained informed consent, the scope was passed under direct vision. Throughout theprocedure, the patient's blood pressure, pulse, and oxygen saturations were monitored continuously. The Colonoscope was introduced through the anus and advanced to the cecum, identified by appendiceal orifice and ileocecal valve. The colonoscopy was performed without difficulty. The patient tolerated the procedure well. The quality of the bowel preparation was good. Findings: The perianal and digital rectal examinations were normal. A 4 mm polyp was found in the transverse colon. The polyp was sessile. The polyp was removed with acold snare. Resection and retrieval were complete. Estimated blood loss was minimal. Scattered small-mouthed diverticula were found inthe sigmoid colon. Internal hemorrhoids were found duringretroflexion. The hemorrhoids were Grade II (internal hemorrhoids that prolapse but reduce spontaneously). The exam was otherwise without abnormality. Procedure Code(s): --- Professional --- 26949, Colonoscopy, flexible; with removal of tumor(s), polyp(s), or other lesion(s) by snare technique Diagnosis Code(s): --- Professional --- D12.3, Benign neoplasm of transverse colon (hepatic flexure or splenic flexure) CPT copyright 2020 [employer]. All rights reserved. The codes documented in this report are preliminary and upon icd 9 coder reviewmay be revised to meet current compliance requirements. Vaishnavi Matthews MD 06/18/2024 1:58:13 PM This report has been signed electronically.Vaishnavi Matthews MD Number of Addenda: 0 Note Initiated On: 06/18/2024 1:43 PM Scope In: 1:45:58 PM Scope Out: 1:56:39 PM Endoscopy Department at [facility] - [address] [place] [phone] IMPRESSION: - One 4 mm polyp in the transverse colon, removed with a cold snare. Resected and retrieved. - Diverticulosis in the sigmoid colon. - Internal hemorrhoids. - The examination was otherwise normal. Recommendation: - Discharge patient to home. - Await pathology results. - No repeat colonoscopy due to current age (66years or older). us Vaishnavi Matthews MD GI~PROCEDURE ORDERABLES Fin al Result * Tissue exam (06/18/2024 1:48 PM EDT) Final Diagnosis Transverse Colon, polyp x1: -TUBULAR ADENOMA 06/19/2024 10:15 AM EDT [facility] Gross Description A. Large Intestine, Transverse Colon, polyp x1: Labeled trans colon polyp x 1 . Received in formalin are three irregular griffin mucosal tissue fragments, ranging from 0.2 cm to zero point dimension, which are wrapped in paper and submitted in toto in one cassette, three pieces, multiple levels on one slide. KODY 06/19/2024 10:[address] [facility] Disclaimer Unless otherwise specified, all tissue is 10% NB formalin fixed and paraffin embedded. 06/19/2024 10:[address] [facility] Tissue Transverse colon structure / Unknown 06/18/2024 1:48 PM EDT 06/18/2024 3:04 PM EDT us Vaishnavi Matthews MD LAB PATHOLOGY ORDERABLES Fi nal Result [facility] [address] [place] [address], [place] [phone] from Last 3 Months Insurance [employer] Care Teams Occupational Rehabilitation Aide Relationship Specialty Start Date End Date Mayar Sauer NP [address] [place] [address] [place] [address] PCP - General 08/31/22
== END 2024-07-31 10:01 | disposition home or self-care (01) ==
LOC: HO.HSMS 08:56
PROVIDERS: PCP Internal Medicine; Visit Provider Physician Assistant Medical
DX: M25.511 Pain in right shoulder (principal); G89.29 Other chronic pain; R41.89 Other symptoms and signs involving cognitive functions and awareness; R06.83 Snoring; G47.10 Hypersomnia, unspecified; G62.9 Polyneuropathy, unspecified; M79.662 Pain in left lower leg; G25.81 Restless legs syndrome; R53.83 Other fatigue; G47.9 Sleep disorder, unspecified
CPT/HCPCS: 99214

== ENCOUNTER → 2024-07-31 08:55 | Outpatient (BNVA) | payer OTHER, SELFPAY | PROVIDERS: PCP Internal Medicine; Visit Provider Physician Assistant Medical ==

== ENCOUNTER 2024-09-23 08:21 | Outpatient (AMB) | payer OTHER, SELFPAY ==
--- OUTSIDE RECORDS SUMMARY | 2024-09-23 08:32 | XMS_ITS | Clinical Summary ---
Author Organization [facility] Address [address] [place] [address] Phone Care Team Providers Care Perinatal Nurse Name Role Phone Mayra Sauer CORROSION TECHNICIAN Primary Care Provider [phone] Allergies No known active allergies Medications polyethylene [...] mouth 1 (one) time each day. Active Surgical History Surgery Date Site/Laterality Comments HERNIA REPAIR PROCEDURE: HISTORICAL HERNIA REPAIR/ING APPENDECTOMY PROCEDURE: [place] APPENDECTOMY COLONOSCOPY 07/27/2016 PROCEDURE: HISTORICAL COLONOSCOPY; COMMENT: [email or web address]; normal. UPPER GASTROINTESTINAL ENDOSCOPY 06/09/2019 PROCEDURE: [place] UPPER GI ENDOSCOPY PERFORMED; COMMENT: Normal KNEE [...] 06/18/2024 1:56 PM EDT Colon cancer screening from Last 3 Months or Most Recently Relevant to Health Maintenance Results * COLONOSCOPY Anesthesia - MAC; [facility] ENDOSCOPY (06/18/2024 1:56 PM EDT) Anatomical Region [...] or older). Narrative 06/18/2024 1:58 PM EDT [facility] GI Patient Name: Aguilar Dixon [...] verified by the physician, the nurse, the agents' records clerk ? and the crown and bridge dental lab technician in the pre-procedure area in the [...] Procedure Code(s): ? --- Professional --- ? 50366, Colonoscopy, flexible; with removal of ? tumor(s), polyp(s), or other lesion(s) by snare ? technique Diagnosis Code(s): ? --- Professional --- ? D12.3, Benign neoplasm of transverse colon (hepatic ? flexure or splenic flexure) CPT copyright 2020 [employer]. All rights reserved. The codes documented in this report are preliminary and upon medical biller/coder review may be revised to meet current compliance requirements. Vaishnavi Matthews MD 06/18/2024 1:58:13 PM This report has been signed electronically.Vaishnavi Matthews MD Number of Addenda: 0 Note Initiated On: 06/18/2024 1:43 PM Scope In: 1:45:58 PM Scope Out: 1:56:39 PM ? Endoscopy Department at [facility] - [address] [place] [address], ? [place] [address] Procedure Note Vaishnavi Matthews MD - 06/18/2024 [facility] GI Patient Name: Aguilar Dixon [...] the physician, the nurse, theanesthetist and the crown and bridge dental lab technician in the pre-procedure area in the [...] without abnormality. Procedure Code(s): --- Professional --- 43281, Colonoscopy, flexible; with removal of tumor(s), polyp(s), or other lesion(s) by snare technique Diagnosis Code(s): --- Professional --- D12.3, Benign neoplasm of transverse colon (hepatic flexure or splenic flexure) CPT copyright 2020 [employer]. All rights reserved. The codes documented in this report are preliminary and upon medical biller/coder reviewmay be revised to meet current compliance requirements. Vaishnavi Matthews MD 06/18/2024 1:58:13 PM This report has been signed electronically.Vaishnavi Matthews MD Number of Addenda: 0 Note Initiated On: 06/18/2024 1:43 PM Scope In: 1:45:58 PM Scope Out: 1:56:39 PM Endoscopy Department at [facility] - [address] [place] [phone] IMPRESSION: - One 4 mm polyp in the transverse colon, removed with a cold snare. Resected and retrieved. - Diverticulosis in the sigmoid colon. - Internal hemorrhoids. - The examination was otherwise normal. Recommendation: - Discharge patient to home. - Await pathology results. - No repeat colonoscopy due to current age (66years or older). Vaishnavi Matthews MD GI~PROCEDURE ORDERABLES Fin al Result from Last 3 Months or Most Recently Relevant to Health Maintenance Insurance [place] [address] Care Teams Perinatal Nurse Relationship Specialty Start Date End Date Mayra Sauer NP [address] [place] [address] [place] [address] PCP - General 08/31/22
[2024-09-23 08:54] VITALS: BP 128/88; PULSE 68; O2SAT 94; BMI 35.8
--- NOTE | 2024-09-23 08:54 | A.OFFVIS_ITS ---
Vital Signs 09/23/24 08:54 Height 5 ft 7 in Weight 228 lb 8 oz BMI 35.8 BP 128/88 Blood Pressure Location Lt brachial Position Sitting Pulse 68 Pulse Source Pulse Oximeter Pulse Oximetry (%) 94 Oxygen Delivery Method Room Air Intake Visit Reasons: 3m follow up Intake Note: Patient presents follow up. HST sent to [facility] per sercarlosty(per workload not scheduled as of yet) Public Health Doctor Required: Yes Public Health Doctor Services: Public Health Doctor Offered & Declined Public Health Doctor Name: Son Information Interpreted: non-clinical & clinical Accompanied by: Son Allergies No Known Allergies Allergy (Verified 09/23/24 08:57) HPI Comments Details: 69 y/o male with hx of CAD, HTN, and sleep difficulties comes for a follow up of memory impairment. He speaks Armenian and understands some [place]er, he is accompanied by his son who helps with history. HST pending October 31, 2024, he is traveling to [facility] on September 26 and will reschedule. Labs 2023 Reviewed with patient today. He did not have his sleep study conducted as he was confused by jackie LLOYD. MRI declined today and he continues to be more forgetful, according to his son he is normally slow to speak. He snores loudly, wakes up gasping for air, frequent arousals, doesn't sleep through the night and cannot sleep supine, feels he cannot breath, will sleep on his left side vs. right due to pain with a creaky noise in his r. shoulder when he reaches for anything in the cupboard. He has osteoarthritis bilaterally in knees and r. hip pain he has been seen by [facility] in the past, he declines PT today. Pt states that his memory is about the same with stm, he needs multiple reminders and cuing. His manages his medication now, as he forgets to take his blood pressure medication.He frequently misplaces articles and searches around the house. He repeats himself, forgets conversations, forgets appointments, has trouble with phone numbers etc. He also describes episodes of disorientation to places lasting few minutes. He lives at home and is independent in all ADLs, he likes to cook, he no longer drives. He walks for about 30 min 3 x a week, does not drink alcohol, prefers juice and water. MMSE is 18, today. RLS: He denies RLS symptoms. Denies numbness, tingling, spasms, cramps. Headaches: He denies morning headaches and does not grind his teeth, he needs dentures and has not been to the dentist. His mood is sad today, not motivated to do much according to his son, declines medications. 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 Mother No problems noted. Social History Household Members: Children Housing: House Alcohol intake: never Patient Tobacco Use Status: Never used Tobacco Physical Exam Vital Signs: Last Vital Signs Pulse 68 09/23/24 08:54 BP 128/88 09/23/24 08:54 Pulse Ox 94 09/23/24 08:54 Oxygen Delivery Method Room Air 09/23/24 08:54 BMI result Body Mass Index 35.8 Const General: cooperative and comfortable Nutritional Appearance: obese Orientation/consciousness: patient oriented x3 HEENT Face and sinus: Yes face symmetric Neck Neck: Yes full ROM Resp Effort & Inspection: normal respiratory effort and able to speak in complete sentences Neuro General: patient oriented x3 and gait normal (slow) Cranial nerves: Yes Facial sensation intact/muscles of mastication intact, Yes Bilaterally intact EOM present, Yes Nystagmus not present, Yes Normal facial strength present, Yes Midline tongue present and Yes Other cranial nerve findings present (R. shoulder pain on extension) Cognition (Neuro): normal cognition Gait exam (Neuro): Normal gait present (slow to ambulate) Motor exam (neuro): Pronator motor function not present and no tremor noted Coordination: evsthw-wj-[id number] test normal Orientation What is the (year) (season) (date) (day) (month)?: year, season, day and month Where are we (state) (county) (town or city) (hospital) (floor)?: state, town or city, hospital/clinic and floor Attention & Calculation (CHOOSE ONE) Ask pt to begin with 100 & count backward by 7. Stop after 5 repeats. If pt cannot ask them to spell the word WORLD backward.: 93 and 86 (76-7) Recall Ask patient to repeat the 3 items from question #3.: object 1, object 2 and object 3 Language Show patient a wristwatch & ask what it is. Repeat for pencil.: watch and pencil Ask the patient to repeat the phrase 'No ifs, ands, or buts' after you.: incorrect Ask the patient to 'take a piece of paper with their right hand' 'fold paper in half' 'place paper on floor': fold paper in half and place paper on floor Print the sentence 'CLOSE YOUR EYES' on a piece. If patient actually closes eyes then score.: followed written direction Score Score: 18 Results Reviewed Results Reviewed: Labs from 05/2023 reviewed with patient vit D is low and A1c elevated to 6.1 and LDL is elevated. HST is pending Assessment & Plan Assessment & Plan (1) Cognitive disorder: Comment: likely related to untreated sleep apnea, and vascular risk factors. Code(s): F09 - Unspecified mental disorder due to known physiological condition Category: Medical (2) Snoring: Comment: Mallmpti score is 4 Code(s): R06.83 - Snoring Category: Medical (3) Fatigue due to sleep pattern disturbance: Comment: HST is pending October 2024? traveling to [facility] September 26 will reschedule. Code(s): R53.83 - Other fatigue; G47.9 - Sleep disorder, unspecified Category: Medical (4) Forgetfulness: Comment: declined MRI today Code(s): R68.89 - Other general symptoms and signs Category: Medical Plan HST to r/o [facility] BMI is elevated. R. Shoulder pain discussed [facility] for PT and Cortisone injections, declines PT today. Forgetfulness declines MRI today. Patient Education provided re: sleep hygiene and the correlation of comorbidities on heart health and brain health. Labs CBC/ CMP/ B12. Vit D / MMA / Homocysteine TSH pending. f/u in 3 months Patient Instructions: Sleep Hygiene provided: set a scheduled bedtime and wake time to help regulate the circadian rhythm and balance the release of pituitary hormones. Sleep in a dark room, temperatures below 68 degrees, and no devices n bed. Limit caffeinated products 6 hours prior to bed, and limit fluids 2-4 hours prior to bed. Gentle night yoga, diffusing essential oils, and playing soft music can be relaxing. Patient does not understand the severity of cardiovascular risk and sleep related disorders, son does not speak [place] well enough to translate terminology accordingly and there is a communication barrier, would like mop handle assembler on IPAD for future visits for effective communication. Coding Level of Care Code Est Pt Level 4 (44087) Complex EM visit Add On G2211 Diagnoses Cognitive disorder F09 Snoring R06.83 Fatigue due to sleep pattern disturbance R53.83; G47.9 Forgetfulness R68.89 Time Spent (min) 30 Comment not compliant
== END 2024-09-23 09:49 | disposition home or self-care (01) ==
LOC: HO.HSMS 08:21
PROVIDERS: PCP Internal Medicine; Visit Provider Physician Assistant Medical
DX: R41.89 Other symptoms and signs involving cognitive functions and awareness (principal); R06.83 Snoring; R53.83 Other fatigue; G47.9 Sleep disorder, unspecified; R41.3 Other amnesia
CPT/HCPCS: 99214; G2211